=== PATIENT | male | born 1945 | race Caucasian/White ===

== ENCOUNTER 2024-04-14 08:21 | Day surgery (SDC) | payer OTHER ==
[~2024-04-14 08:21] MED LIST: CYCLOPENTOLATE 1% OPHTH DROPS 2 ML ONE; PHENYLEPHRINE 2.5% OPHTH 2 ML DROPS ONE
[2024-04-14 08:54] VITALS: O2SAT 100
[2024-04-14] MEDS: PILOCARPINE 1% OPHTH DROPS ONE (08:55)
[2024-04-14] MEDS: PROPARACAINE 0.5% OPHTH DROPS 15 ML ONE (08:55)
[2024-04-14] MEDS: KETOROLAC TROMETHAMINE 0.5% OPHTH DROPS 5 ML ONE (08:55)
[2024-04-14] MEDS: LACTATED RINGERS 1,000 ML IV ONE ×2 (09:02→11:14)
--- NOTE | 2024-04-14 09:31 | ANESTHESIA ---
Pre-Anesthesia VS, & Labs - Diagnosis IOL deposits - Procedure IOL exchange Vital Signs: Temp Pulse Resp BP Pulse Ox O2 Flow Rate 36.4 C L 62 14 119/73 100 04/14/24 08:47 04/14/24 08:47 04/14/24 08:47 04/14/24 08:47 04/14/24 08:47 Height: 5 ft 8 in Weight (kg): 62.6 kg Body Mass Index: 20.9 BMI Classification: Normal - NPO >8 hours Home Medications and Allergies Allergies/Adverse Reactions: Allergies Allergy/AdvReac Type Severity Reaction Status Date / Time No Known Drug Allergies Allergy Verified 04/14/24 08:59 Anes History & Medical History - Anesthetic History Anesthesia Complications: reports: No previous complications Family history of Anesthesia Complications: Denies Family history of Malignant Hyperthermia: Denies - Medical History Cardiovascular: reports: None Pulmonary: reports: None Gastrointestinal: reports: None Urinary: reports: None Musculoskeletal: reports: Osteoarthritis Endocrine/Autoimmune: reports: None Skin: reports: None Smoking Status: Current every day smoker Psychosocial: reports: No issues indicated History of Cancer?: No - Surgical History Eyes Ears Nose Throat (EENT): reports: Tonsil/Adenoidectomy Exam General: Alert, Oriented x3, Cooperative Dental: WNL Mouth Openin Fingerbreadth Neck Mobility: Normal Mallampati classification: I Thyromental Distance: 4-6 cm Respiratory: Lungs clear Cardiovascular: Regular rate Plan Anesthesia Type: MAC Consent for Procedure(s) Verified and Reviewed: Yes Code Status: Attempt Resuscitation ASA classification: 2-Mild systemic disease Is this case an emergency?: No
[2024-04-14] MEDS ORDERED: BRIMONIDINE 0.2% OPHTH DROPS 5 ML ONE (10:05)
[2024-04-14] MEDS ORDERED: EPINEPHrine 1 MG/ML AMP ONE (10:05)
[2024-04-14] MEDS ORDERED: TIMOLOL 0.5% OPHTH DROPS ONE (10:05)
[2024-04-14] MEDS ORDERED: BSS/LIDOCAINE/EPINEPHRINE 1 ML VIAL ONE (10:05)
[2024-04-14] MEDS ORDERED: TRIAMCIN/MOXIFLOX OPHTHALMIC 0.6 ML VIAL IO ONE (10:05)
[2024-04-14] MEDS ORDERED: MIDAZOLAM 2 MG/2 ML VIAL ONE (10:27)
[2024-04-14] MEDS ORDERED: fentaNYL 100 MCG/2 ML VIAL ONE ×2 (10:29→11:01)
[2024-04-14] MEDS: TIMOLOL 0.5% OPHTH DROPS OPTH ONE (10:40)
[2024-04-14] MEDS: BRIMONIDINE 0.2% OPHTH DROPS 5 ML OPTH ONE (10:40)
[2024-04-14] MEDS: PROPARACAINE 0.5% OPHTH DROPS 15 ML LEFTEYE ONE (10:40)
[2024-04-14] MEDS: VANCOMYCIN OPHTH (TOPICAL) 10 MG/ML SYRINGE TOP ONE (10:41)
[2024-04-14] MEDS: TRIAMCIN/MOXIFLOX OPHTHALMIC 0.6 ML VIAL IO ONE ×2 (10:41)
[2024-04-14] MEDS: BSS/LIDOCAINE/EPINEPHRINE 1 ML VIAL IO ONE ×2 (10:41)
[2024-04-14] MEDS: EPINEPHrine 1 MG/ML AMP IR ONE (10:51)
--- NOTE | 2024-04-14 11:32 | OPERATIVE REPORT ---
Operative Report - Other Other Information/Narrative: Date of Surgery: Preop Dx: Posterior chamber IOL opacification left eye. Complex due to IOL exchange using a Malyugin ring for pupil expansion. Cataract surgery was performed in the left eye about 2014 in [place]. About six months after that patient says his vision rapidly declined and his surgeon could not tell him why. It turns out the [email or web address] issued a recall on this silicon [id number] IOL in 2016 due to several reports of the IOL opacifying in-vivo. Postop Dx: Same Procedure: Posterior chamber intraocular lens explantation and replacement with an anterior chmaber IOL left eye Surgeon: Dr. 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 Best corrected visual acuity was 20/100 with glare to light perception vision in the left eye. Indications for surgery were: - Overall decrease in vision - Difficulty seeing words on a computer screen - Difficulty reading - Difficulty seeing street signs - Difficulty driving in low light or at night - Difficulty driving at night because of headlights from other vehicles - Decreased acuity with firearms The patient was consented at length concerning the risks and benefits of cataract surgery after which the patient expressed a desire to proceed with surgery. Operative Procedure: The patient was taken into OR#3 and placed under monitored anesthesia care. A surgical time-out was conducted confirming correct patient, correct procedure, and correct surgical site. The patient was deliberately not dilated for preparation for anterior IOL implantation. The patient was given topical anesthesia and then prepped and draped in the usual sterile fashion. The eye was entered at the 6 and 3 oclock positions. Intracameral Shugarcaine was injected into the anterior chamber followed by a dispersive viscoelastic. A Malyugin ring was injected into the anterior chamber and engaged with the pupillary margin at four points to expand the pupil. Viscoelastic was injected under the capsule to free the IOL. The IOL was manipulted with a Kuglin hook and MST micrograspers. The prolene haptics were adhered to the capsule and so were cut near the junction with the IOL. The IOL was elevated into the anterior chamber and removed through the 6mm wound. The IOL was saved as per petient request. Anterior vitrectomy, on -I/A, was performed until no vitreous was evident in the chamber via triamcinolone staining. A nasal peripheral iridotomy was performed using the vitrector on A. A Sheetz glide was inserted through the wound and across the iris to engage the nasal angle. An 18.5 diopter anterior intraocular lens was inserted over the Sheetz glide and the leading haptic engage with the nasal angle. The Kuglin hook was used to push the trailing haptic into the chamber and dropped into the temporal angle. Infusion and aspiration were used to evacuate the viscoelastic materials from the eye. The wound was sutured with two 10-0 Nylon sutures. The patient seemed to be exquisitely sensitive to any kind of conjunctival manipulation. Approximately 0.25ml of a mixture of triamcinolone and moxifloxacin was injected trans-sclerally into the vitreous in the inferotemporal quadrant using a 30 gauge cannula. An additional 0.25ml of a mixture of triamcinolone and moxifloxacin was injected subconjunctivally in the superior quadrant for infection and inflammation prophylaxis. Wound integrity was checked with Weck- Danita sponges. The patient was taken from the operating room in good condition and given post-op instructions.
[2024-04-14 11:38] VITALS: BP 140/76
--- NOTE | 2024-04-14 12:15 | ANESTHESIA POST OP EVALUATION ---
Anesthesia Post Eval - Post Anesthesia Eval Vitals: Last Vital Signs Temp 36.3 C L 04/14/24 11:30 Pulse 65 04/14/24 11:30 Resp 16 04/14/24 11:30 BP 140/76 H 04/14/24 11:30 Pulse Ox 100 04/14/24 11:30 O2 Flow Rate CV Function Including HR & BP: Stable Pain Control: Satisfactory Nausea & Vomiting: Negative Mental Status: Baseline Respiratory Status: Airway Patent Hydration Status: Satisfactory Anesthesia Complications: None
== END 2024-04-14 08:22 | disposition home or self-care (01) ==
LOC: SDS 08:21
PROVIDERS: ATTEND Ophthalmology
DX: T85.898A Other specified complication of other internal prosthetic devices, implants and grafts, initial encounter (principal); H27.8 Other specified disorders of lens; F17.200 Nicotine dependence, unspecified, uncomplicated
CPT/HCPCS: 66986; A9270; J3490; J7120